=== PATIENT | male | born 1990 | race Caucasian/White ===

== ENCOUNTER 2023-10-30 19:42 | Emergency (ER) | payer OTHER ==
[2023-10-30 20:02] VITALS: BP 116/76; PULSE 94; RESP 18; TEMP 98.2; BMI 31.7
== END 2023-10-31 00:58 | disposition short-term general hospital (02) ==
LOC: JER 19:42
DX: R74.01 Elevation of levels of liver transaminase levels (principal); R11.0 Nausea; Z86.19 Personal history of other infectious and parasitic diseases
CPT/HCPCS: 76705-TC; 99285-25